=== PATIENT | male | born 1985 | race Caucasian/White ===

== ENCOUNTER 2020-04-23 21:42 | Emergency (ER) | payer OTHER ==
[~2020-04-23] VITALS: Ht 182.9 cm; Wt 72.6 kg
[2020-04-23] MEDS ORDERED: Ciloxan5 ML RIGHTEYE (23:49)
== END 2020-04-24 00:14 | disposition home or self-care (01) ==
LOC: ER 21:42
DX: T15.01XA Foreign body in cornea, right eye, initial encounter (principal); Z23 Encounter for immunization; Y93.89 Activity, other specified; Y92.219 Unspecified school as the place of occurrence of the external cause
CPT/HCPCS: 65222; 90471; 90714; 99283; A9270